=== PATIENT | female | born 1990 | race Caucasian/White ===

== ENCOUNTER 2016-09-06 18:45 | Emergency (ER) | payer OTHER ==
[~2016-09-06] VITALS: Ht 162.6 cm; Wt 74.1 kg
[2016-09-06 20:58] VITALS: BP 117/66
== END 2016-09-06 20:58 | disposition home or self-care (01) ==
LOC: ED 18:45
DX: J03.90 Acute tonsillitis, unspecified (principal); M54.2 Cervicalgia
CPT/HCPCS: J1885; J2930

== ENCOUNTER 2016-11-22 20:10 | Emergency (ER) | payer OTHER ==
[2016-11-22 20:57] VITALS: BP 109/74
== END 2016-11-22 23:30 | disposition home or self-care (01) ==
LOC: ED 20:10
DX: S02.2XXA Fracture of nasal bones, initial encounter for closed fracture (principal); Y08.89XA Assault by other specified means, initial encounter; Y93.89 Activity, other specified; Y99.8 Other external cause status; Y92.89 Other specified places as the place of occurrence of the external cause

== ENCOUNTER 2017-04-08 13:51 | Emergency (ER) | payer OTHER ==
[~2017-04-08] VITALS: Ht 162.6 cm; Wt 77.3 kg
[2017-04-08 13:53] VITALS: BP 117/67
== END 2017-04-08 16:57 | disposition home or self-care (01) ==
LOC: ED 13:51
DX: F41.9 Anxiety disorder, unspecified (principal); F32.9 Major depressive disorder, single episode, unspecified

== ENCOUNTER 2017-06-11 13:47 | Emergency (ER) | payer OTHER ==
[~2017-06-11] VITALS: Ht 162.6 cm; Wt 77.1 kg
[2017-06-11 14:04] VITALS: Ht 162.6 cm; Wt 77.1 kg
[2017-06-11 16:54] VITALS: BP 94/50
== END 2017-06-11 16:54 | disposition home or self-care (01) ==
LOC: ED 13:47
DX: R42 Dizziness and giddiness (principal); F41.9 Anxiety disorder, unspecified; F32.9 Major depressive disorder, single episode, unspecified
CPT/HCPCS: J2060

== ENCOUNTER 2017-08-07 12:52 | Emergency (ER) | payer OTHER ==
[~2017-08-07] VITALS: Ht 157.5 cm; Wt 74.8 kg
[2017-08-07 12:58] VITALS: BP 106/63; Ht 157.5 cm; Wt 74.8 kg
== END 2017-08-07 13:45 | disposition home or self-care (01) ==
LOC: ED 12:52
DX: J02.9 Acute pharyngitis, unspecified (principal); Z86.79 Personal history of other diseases of the circulatory system
CPT/HCPCS: J0561; J7512

== ENCOUNTER 2017-12-02 14:49 | Emergency (ER) | payer OTHER ==
[~2017-12-02] VITALS: Ht 162.6 cm; Wt 70.3 kg
[2017-12-02 15:04] VITALS: BP 113/67
== END 2017-12-02 16:50 | disposition home or self-care (01) ==
LOC: ED 14:49
DX: S93.401A Sprain of unspecified ligament of right ankle, initial encounter (principal); S80.02XA Contusion of left knee, initial encounter; W01.0XXA Fall on same level from slipping, tripping and stumbling without subsequent striking against object, initial encounter; Y93.89 Activity, other specified; Y92.89 Other specified places as the place of occurrence of the external cause; Y99.8 Other external cause status

== ENCOUNTER 2017-12-06 22:22 | Emergency (ER) | payer OTHER ==
[~2017-12-06] VITALS: Ht 162.6 cm; Wt 70.8 kg
[2017-12-06 22:33] VITALS: Ht 162.6 cm; Wt 70.8 kg
[2017-12-07 00:35] VITALS: BP 115/84
== END 2017-12-07 00:35 | disposition home or self-care (01) ==
LOC: ED 22:22
DX: F41.9 Anxiety disorder, unspecified (principal); I49.9 Cardiac arrhythmia, unspecified; F32.9 Major depressive disorder, single episode, unspecified

== ENCOUNTER 2018-02-02 14:04 | Emergency (ER) | payer OTHER ==
[~2018-02-02] VITALS: Ht 162.6 cm; Wt 73.0 kg
[2018-02-02 14:10] VITALS: Ht 162.6 cm; Wt 73.0 kg
[2018-02-02 15:56] VITALS: BP 121/73
== END 2018-02-02 15:56 | disposition home or self-care (01) ==
LOC: ED 14:04
DX: F41.1 Generalized anxiety disorder (principal); F32.9 Major depressive disorder, single episode, unspecified; Z86.2 Personal history of diseases of the blood and blood-forming organs and certain disorders involving the immune mechanism; I49.9 Cardiac arrhythmia, unspecified